=== PATIENT | female | born 1990 | race Caucasian/White ===

== ENCOUNTER 2017-11-13 08:16 | Emergency (ER) | payer MEDICAID ==
[~2017-11-13] VITALS: Ht 167.6 cm; Wt 87.0 kg
[~2017-11-13 08:16] MED LIST: CIPR-230 PO; DICY10CA88 PO; IBUP-1984 PO; IBUP-1986 PO; LIDO30CR20 TOP; NAPR-56 PO; ONDA4TAB59 PO
[2017-11-13] MEDS ORDERED: ipratropium/albuterol 3ml nebule NEB ONE (09:55)
[2017-11-13 10:12] LABS: URINE HCG NEGATIVE (NEG)
[2017-11-13 10:25] VITALS: BP 147/67
[2017-11-13] MEDS ORDERED: AFRIN (10:36)
[2017-11-13] MEDS ORDERED: BENZ-16 PO (10:36)
[2017-11-13] MEDS ORDERED: GUAI-178 PO (10:36)
[2017-11-13] MEDS ORDERED: ALBU18HF2 INH (10:36)
== END 2017-11-13 10:53 | disposition home or self-care (01) ==
LOC: ER 08:16
DX: J22 Unspecified acute lower respiratory infection (principal); J45.909 Unspecified asthma, uncomplicated; F17.200 Nicotine dependence, unspecified, uncomplicated; F12.90 Cannabis use, unspecified, uncomplicated; Z59.0 Homelessness; Z56.0 Unemployment, unspecified; Z79.899 Other long term (current) drug therapy
CPT/HCPCS: 81025; 94640; 94760; 99283

== ENCOUNTER 2017-12-26 23:55 | Emergency (ER) | payer MEDICAID ==
[~2017-12-26] VITALS: Ht 152.4 cm; Wt 80.6 kg
[~2017-12-26 23:55] MED LIST changes: +AFRIN; +ALBU18HF2 INH; +GUAI-178 PO
[2017-12-27 00:14] VITALS: BP 139/63
[2017-12-27] MEDS ORDERED: TRAM50TA2 PO (00:53)
[2017-12-27] MEDS ORDERED: IBUP-1984 PO (00:53)
[2017-12-27] MEDS ORDERED: AMOX500C2 PO (00:53)
== END 2017-12-27 00:58 | disposition home or self-care (01) ==
LOC: ER 23:55
DX: K08.89 Other specified disorders of teeth and supporting structures (principal); J45.909 Unspecified asthma, uncomplicated; F12.10 Cannabis abuse, uncomplicated; F17.200 Nicotine dependence, unspecified, uncomplicated; Z90.49 Acquired absence of other specified parts of digestive tract; Z98.890 Other specified postprocedural states; Z59.0 Homelessness; Z56.0 Unemployment, unspecified; Z79.899 Other long term (current) drug therapy
CPT/HCPCS: 99283

== ENCOUNTER 2018-03-15 22:58 | Emergency (ER) | payer MEDICAID ==
[~2018-03-15] VITALS: Ht 167.6 cm; Wt 87.8 kg
[2018-03-15 23:00] VITALS: BP 110/78
[2018-03-15 23:24] LABS: BASOPHILS % (AUTO) 0.4 % (0-1); EOSINOPHILS # (AUTO) 0.2 X10'3 (0-0.9); EOSINOPHILS % (AUTO) 1.8 % (0-6); HEMATOCRIT 38.1 % (35.0-45.0); HEMOGLOBIN 13.4 g/dl (12.0-16.0); LYMPHOCYTES # (AUTO) 3.4 X10'3 (1.1-4.8); LYMPHOCYTES % (AUTO) 35.7 % (21-51); MEAN CORPUSCULAR HEMOGLOBIN 32.1 PG (27.0-31.0); MEAN CORPUSCULAR HGB CONC 35.1 % (33.0-36.5); MEAN CORPUSCULAR VOLUME 91.6 FL (78-98); MEAN PLATELET VOLUME 8.3 FL (7.4-10.4); MONOCYTES # (AUTO) 0.6 X10'3 (0-0.9); MONOCYTES % (AUTO) 6.2 % (2-12); NEUTROPHILS # (AUTO) 5.4 X10'3 (1.8-7.7); NEUTROPHILS % (AUTO) 55.9 % (42-75); PLATELET COUNT 272 X10'3 (140-440); RED BLOOD COUNT 4.16 X10'6 (4.20-5.60); RED CELL DISTRIBUTION WIDTH 13.4 % (11.5-14.5); WHITE BLOOD COUNT 9.6 X10'3 (4.5-11.0)
[2018-03-15 23:27] LABS: CLARITY,URINE SLIGHTLY CLOUDY (Clear); COLOR,URINE YELLOW (Yellow); GLUCOSE, URINE NEGATIVE (Neg); KETONES,URINE NEGATIVE (Neg); LEUKOCYTE ESTERASE ,URINE NEGATIVE (Neg); NITRITES, URINE POSITIVE (Neg); OCCULT BLOOD,URINE MODERATE (Neg); PH,URINE 5.5 (4.8-8.0); PROTEIN,URINE NEGATIVE (Neg); UROBILINOGEN,URINE 0.2 E.U/dL (0.2-1.0)
[2018-03-15 23:28] LABS: UA COLLECTION TYPE CLN CATCH MIDSTREAM
[2018-03-15 23:38] LABS: ALANINE AMINOTRANSFERASE 22 U/L (12-78); ALBUMIN 3.7 G/DL (3.4-5.0); ALKALINE PHOSPHATASE 46 IU/L (46-116); ANION GAP 5 (8-16); ASPARTATE AMINO TRANSFERASE 21 U/L (10-37); BILIRUBIN,TOTAL 0.3 MG/DL (0.1-1.0); BLOOD UREA NITROGEN 10 MG/DL (7-18); BUN/CREATININE RATIO 8.8 (6.6-38.0); CALCIUM 8.7 MG/DL (8.5-10.1); CHLORIDE 106 MMOL/L (99-107); CREATININE 1.13 MG/DL (0.40-0.90); GLUCOSE 82 MG/DL (70-104); POTASSIUM 3.6 MMOL/L (3.5-5.1); SODIUM 142 MMOL/L (135-145); TOTAL CARBON DIOXIDE 30.6 MMOL/L (24-32); TOTAL PROTEIN 7.3 G/DL (6.4-8.2); eGFR 57 ML/MIN
[2018-03-15 23:58] LABS: SQUAMOUS EPITHELIAL CELL,UR FEW /LPF (FEW)
[2018-03-15 23:59] LABS: BACTERIA,URINE 4+ /HPF (Neg)
== END 2018-03-16 01:55 | disposition left against medical advice (07) ==
LOC: ER 22:58
DX: R10.9 Unspecified abdominal pain (principal); Z53.21 Procedure and treatment not carried out due to patient leaving prior to being seen by health care provider
CPT/HCPCS: 36415; 80053; 81001; 85025; 85610; 87077; 87088; 87186

== ENCOUNTER 2018-08-08 11:09 | Emergency (ER) | payer MEDICAID, OTHER ==
[~2018-08-08] VITALS: Ht 167.6 cm; Wt 68.7 kg
[2018-08-08 11:17] VITALS: BP 120/76
[2018-08-08] MEDS ORDERED: PENI-88 PO (11:43)
[2018-08-08] MEDS ORDERED: LIDO20SO16 PO (11:43)
== END 2018-08-08 12:05 | disposition home or self-care (01) ==
LOC: ER 11:10
DX: J02.0 Streptococcal pharyngitis (principal); J45.909 Unspecified asthma, uncomplicated; F12.90 Cannabis use, unspecified, uncomplicated; Z59.0 Homelessness; Z56.0 Unemployment, unspecified; Z86.14 Personal history of Methicillin resistant Staphylococcus aureus infection; Z90.49 Acquired absence of other specified parts of digestive tract; Z98.890 Other specified postprocedural states; Z79.899 Other long term (current) drug therapy
CPT/HCPCS: 99283

== ENCOUNTER 2019-07-24 12:26 | Emergency (ER) | payer MEDICAID, OTHER ==
[~2019-07-24] VITALS: Ht 167.6 cm; Wt 86.0 kg
[~2019-07-24 12:26] MED LIST changes: +LIDO20SO16 PO
[2019-07-24 12:42] VITALS: BP 143/96
[2019-07-24] MEDS ORDERED: ondansetron 4mg rapidly disintigrating tab PO ONE (12:45)
[2019-07-24] MEDS ORDERED: ONDA4TAB12 PO (13:37)
== END 2019-07-24 13:50 | disposition home or self-care (01) ==
LOC: ER 12:26
DX: K52.9 Noninfective gastroenteritis and colitis, unspecified (principal); J45.909 Unspecified asthma, uncomplicated; F41.9 Anxiety disorder, unspecified; F12.90 Cannabis use, unspecified, uncomplicated; Z79.899 Other long term (current) drug therapy; Z79.2 Long term (current) use of antibiotics; Z79.1 Long term (current) use of non-steroidal anti-inflammatories (NSAID); Z86.14 Personal history of Methicillin resistant Staphylococcus aureus infection; Z90.49 Acquired absence of other specified parts of digestive tract; Z98.890 Other specified postprocedural states; Z56.0 Unemployment, unspecified; Z59.0 Homelessness
CPT/HCPCS: 99283

== ENCOUNTER 2019-08-09 15:47 | Emergency (ER) | payer MEDICAID ==
[~2019-08-09] VITALS: Ht 167.6 cm; Wt 90.0 kg
[~2019-08-09 15:47] MED LIST changes: +ONDA4TAB12 PO
[2019-08-09 15:59] VITALS: BP 135/85
== END 2019-08-09 17:26 | disposition home or self-care (01) ==
LOC: ER 15:48
DX: F15.10 Other stimulant abuse, uncomplicated (principal); J45.909 Unspecified asthma, uncomplicated; F41.9 Anxiety disorder, unspecified; F12.90 Cannabis use, unspecified, uncomplicated; F17.200 Nicotine dependence, unspecified, uncomplicated; Z13.89 Encounter for screening for other disorder; Z79.899 Other long term (current) drug therapy; Z79.2 Long term (current) use of antibiotics; Z79.1 Long term (current) use of non-steroidal anti-inflammatories (NSAID); Z86.14 Personal history of Methicillin resistant Staphylococcus aureus infection; Z90.49 Acquired absence of other specified parts of digestive tract; Z98.890 Other specified postprocedural states; Z59.0 Homelessness; Z56.0 Unemployment, unspecified
CPT/HCPCS: 99281

== ENCOUNTER 2019-09-13 08:27 | Emergency (ER) | payer MEDICAID ==
[~2019-09-13] VITALS: Ht 167.6 cm; Wt 90.9 kg
[2019-09-13] MEDS ORDERED: AZIT250T PO (09:34)
[2019-09-13] MEDS ORDERED: BENZ-16 PO (09:34)
[2019-09-13 09:41] VITALS: BP 114/70
== END 2019-09-13 09:42 | disposition home or self-care (01) ==
LOC: ER 08:28
DX: J06.9 Acute upper respiratory infection, unspecified (principal); F17.210 Nicotine dependence, cigarettes, uncomplicated; J45.909 Unspecified asthma, uncomplicated; F41.9 Anxiety disorder, unspecified; F15.90 Other stimulant use, unspecified, uncomplicated; F10.99 Alcohol use, unspecified with unspecified alcohol-induced disorder; F12.90 Cannabis use, unspecified, uncomplicated; Z86.14 Personal history of Methicillin resistant Staphylococcus aureus infection; Z90.49 Acquired absence of other specified parts of digestive tract; Z98.890 Other specified postprocedural states; Z71.6 Tobacco abuse counseling; Z59.0 Homelessness; Z56.0 Unemployment, unspecified; Z79.899 Other long term (current) drug therapy; Y90.9 Presence of alcohol in blood, level not specified
CPT/HCPCS: 99283; 99406

== ENCOUNTER 2020-03-29 09:12 | Emergency (ER) | payer MEDICAID ==
[~2020-03-29] VITALS: Ht 170.2 cm; Wt 109.0 kg
[~2020-03-29 09:12] MED LIST changes: +BENZ-16 PO
[2020-03-29 09:18] VITALS: BP 142/85
[2020-03-29] MEDS ORDERED: AMOX-422 PO (11:23)
[2020-03-29] MEDS ORDERED: IBUP-1984 PO (11:23)
== END 2020-03-29 11:47 | disposition home or self-care (01) ==
LOC: ER 09:13
DX: K04.7 Periapical abscess without sinus (principal); R59.0 Localized enlarged lymph nodes; R11.0 Nausea; H92.02 Otalgia, left ear; J02.9 Acute pharyngitis, unspecified; R68.84 Jaw pain; J45.909 Unspecified asthma, uncomplicated; F41.9 Anxiety disorder, unspecified; F12.90 Cannabis use, unspecified, uncomplicated; F15.90 Other stimulant use, unspecified, uncomplicated; Z86.14 Personal history of Methicillin resistant Staphylococcus aureus infection; Z90.49 Acquired absence of other specified parts of digestive tract; Z98.890 Other specified postprocedural states; Z72.89 Other problems related to lifestyle; Z56.0 Unemployment, unspecified; Z59.0 Homelessness; Z79.2 Long term (current) use of antibiotics; Z79.899 Other long term (current) drug therapy
CPT/HCPCS: 99283

== ENCOUNTER 2020-05-01 09:42 | Emergency (ER) | payer MEDICAID ==
[~2020-05-01] VITALS: Ht 170.2 cm; Wt 118.6 kg
[2020-05-01] MEDS ORDERED: ibuprofen tablet 400 MG TABLET PO ONE (10:10)
[2020-05-01] MEDS ORDERED: IBUP-1984 PO (10:27)
[2020-05-01 11:25] VITALS: BP 129/79
== END 2020-05-01 11:24 | disposition home or self-care (01) ==
LOC: ER 09:43
DX: S93.491A Sprain of other ligament of right ankle, initial encounter (principal); J45.909 Unspecified asthma, uncomplicated; F41.9 Anxiety disorder, unspecified; F15.90 Other stimulant use, unspecified, uncomplicated; F12.90 Cannabis use, unspecified, uncomplicated; Z86.14 Personal history of Methicillin resistant Staphylococcus aureus infection; Z90.49 Acquired absence of other specified parts of digestive tract; Z98.890 Other specified postprocedural states; Z59.0 Homelessness; Z56.0 Unemployment, unspecified; Z79.899 Other long term (current) drug therapy; X58.XXXA Exposure to other specified factors, initial encounter; Y93.89 Activity, other specified; Y92.89 Other specified places as the place of occurrence of the external cause; Y99.8 Other external cause status
CPT/HCPCS: 29515; 73610; 99283

== ENCOUNTER 2021-12-08 12:28 | Emergency (ER) | payer MEDICAID ==
[~2021-12-08] VITALS: Ht 167.6 cm; Wt 105.0 kg
[~2021-12-08 12:28] MED LIST changes: +CIPR-202 PO; -CIPR-230 PO
[2021-12-08 12:45] VITALS: BP 140/91
[2021-12-08 13:44] LABS: BASOPHILS # (AUTO) 0.1 X10'3 (0-0.2); BASOPHILS % (AUTO) 0.7 % (0-1); EOSINOPHILS # (AUTO) 0.1 X10'3 (0-0.9); EOSINOPHILS % (AUTO) 1.1 % (0-6); HEMATOCRIT 41.5 % (35.0-45.0); HEMOGLOBIN 14.1 g/dl (12.0-16.0); LYMPHOCYTES # (AUTO) 2.6 X10'3 (1.1-4.8); MEAN CORPUSCULAR HEMOGLOBIN 31.2 PG (27.0-31.0); MEAN CORPUSCULAR VOLUME 91.8 FL (78-98); MEAN PLATELET VOLUME 8.5 FL (7.4-10.4); MONOCYTES # (AUTO) 0.9 X10'3 (0-0.9); MONOCYTES % (AUTO) 7.4 % (2-12); NEUTROPHILS # (AUTO) 8.7 X10'3 (1.8-7.7); NEUTROPHILS % (AUTO) 69.8 % (42-75); PLATELET COUNT 439 X10'3 (140-440); RED BLOOD COUNT 4.52 X10'6 (4.20-5.60); RED CELL DISTRIBUTION WIDTH 14.3 % (11.5-14.5); WHITE BLOOD COUNT 12.5 X10'3 (4.5-11.0)
[2021-12-08] MEDS ORDERED: ketorolac trometh. 30mg/ml inj. IM ONE (13:45)
[2021-12-08] MEDS ORDERED: ondansetron 4mg rapidly disintigrating tab PO ONE (13:45)
[2021-12-08 13:50] LABS: CLARITY,URINE CLOUDY (Clear); COLOR,URINE YELLOW (Yellow); GLUCOSE, URINE NEGATIVE (Neg); KETONES,URINE 15 mg/dl (Neg); LEUKOCYTE ESTERASE ,URINE NEGATIVE (Neg); NITRITES, URINE NEGATIVE (Neg); OCCULT BLOOD,URINE NEGATIVE (Neg); PH,URINE 6.5 (4.8-8.0); PROTEIN,URINE TRACE mg/dl (Neg); UROBILINOGEN,URINE 0.2 E.U/dL (0.2-1.0)
[2021-12-08 13:53] LABS: UA COLLECTION TYPE NON-SPECIFIED
[2021-12-08 13:57] LABS: URINE HCG NEGATIVE (NEG)
[2021-12-08 13:58] LABS: BACTERIA,URINE 2+ /HPF (Neg); MUCUS STRANDS MANY /LPF (Neg); RBC,URINE 0-2 /HPF (0-2); SQUAMOUS EPITHELIAL CELL,UR MANY /LPF (FEW)
[2021-12-08 14:00] LABS: ALANINE AMINOTRANSFERASE 22 U/L (12-78); ALBUMIN 3.6 G/DL (3.4-5.0); ALBUMIN/GLOBULIN RATIO 0.8 (1.1-1.5); ALKALINE PHOSPHATASE 80 IU/L (46-116); ASPARTATE AMINO TRANSFERASE 23 U/L (10-37); BILIRUBIN,TOTAL 0.5 MG/DL (0.1-1.0); BLOOD UREA NITROGEN 17 MG/DL (7-18); BUN/CREATININE RATIO 19.5 (6.6-38.0); CALCIUM 9.4 MG/DL (8.5-10.1); CREATININE 0.87 MG/DL (0.40-0.90); GLUCOSE 91 MG/DL (70-104); LIPASE < 50 U/L (73-393); TOTAL CARBON DIOXIDE 25.2 MMOL/L (24-32); TOTAL PROTEIN 8.2 G/DL (6.4-8.2); eGFR 75 ML/MIN
[2021-12-08] MEDS ORDERED: ONDA8TAB13 PO (14:15)
[2021-12-08] MEDS ORDERED: LEVO750T46 PO (14:15)
[2021-12-08] MEDS ORDERED: CefTRIAXone 1000mg IM Kit (w/lidocaine diluent) IM ONE (14:35)
[2021-12-09 08:59] LABS: POTASSIUM 4.3 MMOL/L (3.3-5.1)
[2021-12-09 15:36] LABS: POTASSIUM 4.3 MMOL/L (3.5-5.1); SODIUM 138 MMOL/L (135-145)
[2021-12-09 15:37] LABS: ANION GAP 9 (8-16); CHLORIDE 104 MMOL/L (99-107)
== END 2021-12-08 15:02 | disposition home or self-care (01) ==
LOC: ER 12:30
DX: N12 Tubulo-interstitial nephritis, not specified as acute or chronic (principal); J45.909 Unspecified asthma, uncomplicated; F41.9 Anxiety disorder, unspecified; F12.10 Cannabis abuse, uncomplicated; F15.10 Other stimulant abuse, uncomplicated; Z59.00 Homelessness unspecified; Z56.0 Unemployment, unspecified
CPT/HCPCS: 36415; 76770; 80051; 80053; 81001; 81025; 83690; 85025; 96372; 99284; J0696; J1885

== ENCOUNTER 2024-08-05 22:00 | Emergency (ER) | payer MEDICAID ==
[~2024-08-05] VITALS: Ht 167.6 cm; Wt 101.7 kg
[~2024-08-05 22:00] MED LIST changes: +ONDA-243 PO; +ONDA-245 PO; -ONDA4TAB12 PO
[2024-08-05 22:03] VITALS: BP_DIAS 84
[2024-08-05] MEDS: bacitracin 15gm ointment TP ONE (22:27)
[2024-08-05 22:29] VITALS: PULSE 88; RESP 16; TEMP 97.7; O2SAT 98
== END 2024-08-05 22:31 | disposition home or self-care (01) ==
LOC: ER 22:00
DX: S30.810A Abrasion of lower back and pelvis, initial encounter (principal); J45.909 Unspecified asthma, uncomplicated; Z90.49 Acquired absence of other specified parts of digestive tract; Z87.19 Personal history of other diseases of the digestive system; X58.XXXA Exposure to other specified factors, initial encounter; Y93.89 Activity, other specified; Y92.89 Other specified places as the place of occurrence of the external cause; Y99.8 Other external cause status
CPT/HCPCS: 99282

== ENCOUNTER 2024-10-15 16:22 | Emergency (ER) | payer MEDICAID ==
[~2024-10-15] VITALS: Ht 167.6 cm; Wt 100.0 kg
[2024-10-15] MEDS ORDERED: AMOX875T10 PO (16:39)
[2024-10-15] MEDS: amoxicillin 250mg capsule PO STA (16:39)
[2024-10-15 16:43] VITALS: BP 161/100; PULSE 101; RESP 16; TEMP 98.3; O2SAT 98
== END 2024-10-15 16:44 | disposition home or self-care (01) ==
LOC: ER 16:23
DX: K04.7 Periapical abscess without sinus (principal); M54.2 Cervicalgia; J45.909 Unspecified asthma, uncomplicated; F12.90 Cannabis use, unspecified, uncomplicated; F15.90 Other stimulant use, unspecified, uncomplicated; F41.9 Anxiety disorder, unspecified; Z98.890 Other specified postprocedural states; Z90.49 Acquired absence of other specified parts of digestive tract
CPT/HCPCS: 99283

== ENCOUNTER 2024-10-17 15:38 | Emergency (ER) | payer MEDICAID ==
[~2024-10-17 15:38] MED LIST changes: +AMOX875T10 PO
== END 2024-10-17 16:50 | disposition left against medical advice (07) ==
LOC: ER 15:38
DX: K13.79 Other lesions of oral mucosa (principal); Z53.21 Procedure and treatment not carried out due to patient leaving prior to being seen by health care provider

== ENCOUNTER 2025-01-02 22:04 | Emergency (ER) | payer MEDICAID ==
[~2025-01-02] VITALS: Ht 167.6 cm; Wt 105.5 kg
[~2025-01-02 22:04] MED LIST changes: -AMOX875T10 PO
[2025-01-02 22:06] VITALS: TEMP 98
[2025-01-02 23:25] VITALS: BP 150/97; PULSE 80; RESP 16; O2SAT 99
[2025-01-02] MEDS ORDERED: AMOX875T10 PO (23:29)
[2025-01-02] MEDS ORDERED: ACET-1025 PO (23:30)
[2025-01-02] MEDS ORDERED: IBUP-1986 PO (23:30)
[2025-01-02] MEDS: ibuprofen tablet 400 MG TABLET PO STA (23:43)
[2025-01-02] MEDS: acetaminophen 325mg tablet PO STA (23:44)
[2025-01-02] MEDS: amoxicillin 250mg capsule PO STA (23:44)
== END 2025-01-02 23:49 | disposition home or self-care (01) ==
LOC: ER 22:04
DX: K04.7 Periapical abscess without sinus (principal); J45.909 Unspecified asthma, uncomplicated; F41.9 Anxiety disorder, unspecified; F12.90 Cannabis use, unspecified, uncomplicated; F15.90 Other stimulant use, unspecified, uncomplicated; F10.90 Alcohol use, unspecified, uncomplicated; Z98.890 Other specified postprocedural states; Z90.49 Acquired absence of other specified parts of digestive tract; Y90.9 Presence of alcohol in blood, level not specified
CPT/HCPCS: 99284

== ENCOUNTER 2025-03-23 20:22 | Emergency (ER) | payer MEDICAID ==
[~2025-03-23] VITALS: Ht 167.6 cm; Wt 109.2 kg
[2025-03-23 21:01] VITALS: BP 123/78; PULSE 88; RESP 16; O2SAT 100
[2025-03-23 22:30] VITALS: TEMP 98.2
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
== END 2025-03-23 22:55 | disposition home or self-care (01) ==
LOC: ER 20:23
DX: M25.512 Pain in left shoulder (principal); J45.909 Unspecified asthma, uncomplicated; F12.90 Cannabis use, unspecified, uncomplicated; F15.90 Other stimulant use, unspecified, uncomplicated; F41.9 Anxiety disorder, unspecified; Z90.49 Acquired absence of other specified parts of digestive tract; Z79.899 Other long term (current) drug therapy; Z56.0 Unemployment, unspecified; Z59.00 Homelessness unspecified
CPT/HCPCS: 99281; 99282